=== PATIENT | male | born 1995 | race Two or more races ===

== ENCOUNTER 2021-09-10 15:51 | Emergency (ER) | payer OTHER ==
[~2021-09-10] VITALS: Ht 182.9 cm; Wt 116.6 kg
[2021-09-10] MEDS ORDERED: IV NS 0.9% 1,000 ML BAG IV ONE (16:00)
[2021-09-10] MEDS ORDERED: LORAZEPAM INJ 2 MG/ML VIAL IVP ONE (16:00)
--- NOTE | 2021-09-10 16:05 | NUR ---
The patient is [id number], from home, witnessed seizure, post ictal, Versed 10mg given on scene. The patient is alert to his name. Attached to the monitor. Seizure precautions taken.
--- NOTE | 2021-09-10 16:08 | NUR ---
STARTED IV LINE, BLOOD SPECIMEN COLLECTED AND SENT TO THE LAB
[2021-09-10 16:15] LABS: RED BLOOD CELL COUNT(AUTO) 6.07 MIL/uL (4.5-6.0)
[2021-09-10 16:18] LABS: BASOPHILS # (AUTO) 0.4 K/uL (0.0-0.2); BASOPHILS % (AUTO) 4.4 % (0.0-2.0); EOSINOPHILS % (AUTO) 2.2 % (0.0-6.0); HEMATOCRIT 50 % (39-51); LYMPHOCYTES # (AUTO) 2.9 K/uL (0.8-4.8); LYMPHOCYTES % (AUTO) 31.6 % (20.0-44.0); MEAN CORPUSCULAR HGB CONC 32 g/dl (31.0-36.0); MEAN CORPUSCULAR VOLUME 82 fL (80-96); MONOCYTES # (AUTO) 0.8 K/uL (0.1-1.30); MONOCYTES % (AUTO) 8.4 % (2.0-12.0); NEUTROPHILS # (AUTO) 4.9 K/uL (1.8-8.9); NEUTROPHILS % (AUTO) 53.4 % (43.0-81.0); PLATELET COUNT (AUTO) 232 K/uL (150-450); WHITE BLOOD COUNT (AUTO) 9.1 K/uL (4.3-11.0)
[2021-09-10] MEDS ORDERED: LEVETIRACETAM (500MG) 1,000 MG in IV NS 0.9% 100 ML IV ONE (16:30)
[2021-09-10] MEDS ORDERED: LORAZEPAM INJ 2 MG/ML VIAL ONE (16:32)
[2021-09-10 16:39] LABS: CALCIUM, SERUM 8.7 mg/dL (8.5-10.1); CREATININE 1.2 mg/dL (0.6-1.3); POTASSIUM 3.6 mmol/L (3.5-5.1)
--- NOTE | 2021-09-10 17:16 | NUR ---
THE PATIENT IS ALERT AND ORIENTED X3 WITH EPISODES OF FORGETFULLNESS. DENIES PAIN. IN ROOM AIR AND DENIES SOB. RESPIRATION REGULAR AND UNLABORED. WILL CONTINUE TO MONITOR THE PATIENT.
[2021-09-10] MEDS ORDERED: LEVE500T9 PO (17:41)
--- NOTE | 2021-09-10 19:29 | NUR ---
IV removed. Catheter intact and site benign. Pressure and 4x4 applied to site. No bleeding noted.Patient discharged to home in stable condition. rx and Written and verbal after care instructions given. Patient verbalizes understanding of instruction. family at bed side to thake the pt home.
--- NOTE | 2021-09-10 19:42 | NUR ---
Patient discharged to home in stable condition. Written and verbal after care instructions given. Patient verbalizes understanding of instruction. Pt ambulated out of ED. VSS.
[2021-09-10 19:43] VITALS: BP 131/75
== END 2021-09-10 19:43 | disposition home or self-care (01) ==
LOC: ER 15:54
DX: G40.909 Epilepsy, unspecified, not intractable, without status epilepticus (principal); Z79.899 Other long term (current) drug therapy
CPT/HCPCS: 36415; 80048; 80177; 85025; 96365; 96375; 99284; J1953; J2060; J7030

== ENCOUNTER 2024-07-30 22:22 | Emergency (ER) | payer OTHER ==
[~2024-07-30] VITALS: Ht 185.4 cm; Wt 102.1 kg
[~2024-07-30 22:22] MED LIST: LEVE500T9 PO
[2024-07-30] MEDS ORDERED: KETOROLAC TROMETHAMINE 15 MG/ML VIAL ONE (23:58)
[2024-07-30] MEDS ORDERED: predniSONE 20 MG TABLET ONE (23:59)
[2024-07-30] MEDS ORDERED: COLCHICINE 0.6 MG TABLET ONE (23:59)
[2024-07-31] MEDS: COLCHICINE 0.6 MG TABLET PO ONE
[2024-07-31] MEDS: KETOROLAC TROMETHAMINE 15 MG/ML VIAL IM ONE
[2024-07-31] MEDS ORDERED: INDO50CA91 PO
[2024-07-31] MEDS ORDERED: COLC0.6T67 PO
[2024-07-31] MEDS: predniSONE 50 MG TABLET PO ONE
[2024-07-31] MEDS ORDERED: METH4TAB3 PO
[2024-07-31 00:14] VITALS: BP 120/66; TEMP 98.1; O2SAT 98
== END 2024-07-31 00:15 | disposition home or self-care (01) ==
LOC: ER 22:25
DX: M10.9 Gout, unspecified (principal); M79.671 Pain in right foot; G40.909 Epilepsy, unspecified, not intractable, without status epilepticus; Z86.011 Personal history of benign neoplasm of the brain
CPT/HCPCS: 99283; 96372; J1885

== ENCOUNTER 2024-08-25 21:15 | Emergency (ER) | payer OTHER ==
[~2024-08-25] VITALS: Ht 177.8 cm; Wt 74.8 kg
[~2024-08-25 21:15] MED LIST changes: +COLC0.6T67 PO; +INDO50CA91 PO; +METH4TAB3 PO
[2024-08-25 21:20] VITALS: TEMP 98.5
[2024-08-25 21:54] VITALS: BP 171/98; O2SAT 98
[2024-08-25] MEDS ORDERED: IBUP-1953 PO (22:58)
[2024-08-25] MEDS ORDERED: IBUPROFEN 400 MG TABLET ONE (23:00)
[2024-08-25] MEDS ORDERED: IBUPROFEN 400 MG TABLET PO ONE (23:00)
== END 2024-08-25 23:20 | disposition home or self-care (01) ==
LOC: ER 21:21
DX: S83.8X2A Sprain of other specified parts of left knee, initial encounter (principal); F17.200 Nicotine dependence, unspecified, uncomplicated; R53.1 Weakness; Z86.69 Personal history of other diseases of the nervous system and sense organs; W18.39XA Other fall on same level, initial encounter; Y93.89 Activity, other specified; Y92.89 Other specified places as the place of occurrence of the external cause; Y99.8 Other external cause status
CPT/HCPCS: 73564-TC